=== PATIENT | female | born 1965 | race Caucasian/White ===

== ENCOUNTER 2019-06-29 06:55 | Day surgery (SDC) | payer OTHER, MEDICARE ==
[~2019-06-29] VITALS: Ht 147.3 cm; Wt 63.6 kg
[~2019-06-29 06:55] MED LIST: AMLO5TAB9 PO; ATOR20TA86 PO; BENA10TA12 PO; CALC-789 PO; CALC3.8S NASAL; CARB100 PO; CARB200T6 PO; CHOL200059 PO; CRAN250C PO; DOCU250C90 PO; FAMO20 PO; FERR-89 PO; FLUO-191 PO; FOLI1 PO; ICOS1CAP PO; KETO15CR2 TP; LEVO25TA9 PO; NYST15CR2 TP; POLY17PO29 PO; RINGERS SOLUTION,LACTATED 1,000 ML IV ONE; SACC250C3 PO
[2019-06-29] MEDS ORDERED: DEXAMETHASONE SOD PHOS 4 MG/ML VIAL IVP ONE (06:56)
[2019-06-29] MEDS ORDERED: GLYCOPYRROLATE 0.2 MG/ML VIAL IM ONE (06:56)
[2019-06-29] MEDS ORDERED: FentaNYL CITRATE-PF 100 MCG/2 ML VIAL IVP ONE (06:56)
[2019-06-29] MEDS ORDERED: NEOSTIGMINE METHYLSULFATE 1 MG/ML 10 ML VIAL IVP ONE (06:56)
[2019-06-29] MEDS ORDERED: LIDOCAINE/PF 2% 5 ML VIAL IM ONE (06:56)
[2019-06-29] MEDS ORDERED: ROCURONIUM BROMIDE 10 MG/ML 5 ML VIAL IVP ONE (06:56)
[2019-06-29] MEDS ORDERED: PROPOFOL 1% 20 ML VIAL IVP ONE (06:56)
[2019-06-29] MEDS ORDERED: MIDAZOLAM HCL 2 MG/2 ML VIAL IVP ONE (06:56)
[2019-06-29] MEDS ORDERED: ONDANSETRON HCL 4 MG/2 ML VIAL IVP ONE (06:56)
[2019-06-29 07:43] LABS: BASOPHILS % (AUTO) 0.2 % (0.0-2.0); EOSINOPHILS % (AUTO) 1.3 % (1.0-6.0); HEMATOCRIT 42.5 % (36-46); HEMOGLOBIN 14.2 g/dL (12.0-16.0); LYMPHOCYTES # (AUTO) 3.1 K/uL (1.0-4.8); LYMPHOCYTES % (AUTO) 41.6 % (22.0-44.0); MEAN CORPUSCULAR HEMOGLOBIN 31.2 pg (26.0-34.0); MEAN CORPUSCULAR HGB CONC 33.4 G/dL (31.0-37.0); MEAN CORPUSCULAR VOLUME 94 fL (80-100); MONOCYTES # (AUTO) 0.3 K/uL (0.1-1.0); MONOCYTES % (AUTO) 4.6 % (2.0-9.0); NEUTROPHILS # (AUTO) 3.9 K/uL (1.8-7.7); NEUTROPHILS % (AUTO) 52.3 % (40.0-70.0); PLATELET COUNT (AUTO) 332 K/uL (150-450); RED BLOOD CELL COUNT(AUTO) 4.54 MIL/uL (4.00-5.20); RED CELL DISTRIBUTION WIDTH 12.4 % (11.5-14.5)
[2019-06-29 07:53] LABS: ANION GAP 9 mmol/L (8-16); CALCIUM, TOTAL 8.7 mg/dL (8.8-10.5); CARBON DIOXIDE 25 mmol/L (22-29); CHLORIDE 94 mmol/L (98-107); CREATININE 0.53 mg/dL (0.60-1.30); GLOMERULAR FILTR. RATE CALC > 60 mL/min (>60); GLUCOSE,RANDOM 104 mg/dL (70-110); POTASSIUM 3.7 mmol/L (3.5-5.1); SODIUM SERUM 128 mmol/L (136-145); UREA NITROGEN, BLOOD 10 mg/dL (7-18)
[2019-06-29 07:55] LABS: PROTHROMBIN TIME 10.1 SEC (9.4-11.6)
[2019-06-29 08:00] LABS: ALANINE AMINOTRANSFERASE 22 U/L (12-78); ALBUMIN 3.8 g/dL (3.4-5.0); ALKALINE PHOSPHATASE 84 U/L (46-116); ASPARTATE AMINOTRANSFERASE 23 U/L (15-37); BILIRUBIN,TOTAL 0.3 mg/dL (0.1-1.0); TOTAL PROTEIN, SERUM 7.7 g/dL (6.4-8.2)
[2019-06-29] MEDS ORDERED: SODIUM CHLORIDE 0.9% 1,000 ML IV ONE (08:15)
[2019-06-29 08:26] LABS: HCG,QUANTITATIVE < 1 mIU/mL (0-6)
[2019-06-29] MEDS ORDERED: AMPICILLIN SODIUM 1 GM/VIAL ONE (09:45)
[2019-06-29] MEDS ORDERED: MEPERIDINE-PF 25 MG/ML VIAL IVP PRN (11:15)
[2019-06-29] MEDS ORDERED: HYDROmorphone 2 MG/ML SYRINGE IVP PRN (11:15)
[2019-06-29] MEDS ORDERED: FentaNYL CITRATE-PF 100 MCG/2 ML VIAL IVP PRN (11:15)
[2019-06-29] MEDS ORDERED: RINGERS SOLUTION,LACTATED 1,000 ML IV ONE (11:26)
[2019-06-29] MEDS ORDERED: OXYGEN THERAPY IH SCH (20:00)
== END 2019-06-29 12:40 | disposition home or self-care (01) ==
LOC: SURGERY 06:55
PROVIDERS: ATTEND Dentist General Practice
DX: K05.30 Chronic periodontitis, unspecified (principal); K03.6 Deposits [accretions] on teeth; I10 Essential (primary) hypertension; E03.9 Hypothyroidism, unspecified; E78.5 Hyperlipidemia, unspecified; F73 Profound intellectual disabilities; K21.9 Gastro-esophageal reflux disease without esophagitis; F63.9 Impulse disorder, unspecified; Z79.899 Other long term (current) drug therapy; Z79.01 Long term (current) use of anticoagulants; Z98.890 Other specified postprocedural states
CPT/HCPCS: 36415; 41899; 71045; 80053; 84702; 85025; 85610; 85730; 93005; J0290; J1100; J2250; J2405; J2704; J3010; J3490 ×3; J7030; J7120